=== PATIENT | male | born 1950 | race Caucasian/White ===

== ENCOUNTER → 2017-10-03 | Outpatient (CLI) | payer BC, OTHER ==
[~2017-10-03] MED LIST: ASPI-1471 PO; ATR80PT PO; BUPR-134 PO; BUPR300T55 PO; DIATOMACEOUS EARTH PO; IBU600 PO; METH18TA12 PO; PROP40TA45 PO; SERT-181 PO; SIMV-42 PO; VITA-324 PO
[2017-10-03 16:09] LABS: PLATELET COUNT, AUTOMATED 181 K/uL (150-450)
--- NOTE | 2017-10-03 16:41 | RADIOLOGY IMAGING REPORT ---
FACILITY: [facility] [place] PATIENT NAME: Gautam Robledo : 1950 MR: [id number] V: [id number] EXAM DATE: ORDERING PHYSICIAN: CARINA JULIEN TECHNOLOGIST: Location: [facility] Patient: Gautam Robledo : 1950 Visit/Account:[id number] Date of Sevice: 10/03/2017 Exam type: CHEST PA AND LAT History: Copy two days, shortness of breath, nonsmoker Comparison: None. Findings: There is linear stranding seen in the lung bases, left greater than right which may represent scarrin g versus atelectasis. There also appears be mild peribronchial thickening in the lower lobes. No ev idence of lobar consolidation pleural effusions or overt pulmonary edema. Cardiac swelling is normal in size. IMPRESSION: 1. Linear stranding the lung bases, left greater than right which may represent scarring versus atel ectasis Mild peribronchial thickening in the lower lobes which could represent an acute peribronchial inflamm atory process A phone message was left for CARINA JULIEN at 10/03/2017 4:37 PM. Report Dictated By: Hilary Baez MD at 10/03/2017 4:35 PM Report E-Signed By: Hilary Baez MD at 10/03/2017 4:37 PM WSN:[id number]
--- NOTE | 2017-10-03 17:28 | EKG ---
FACILITY: [facility] PATIENT NAME: DELFINO DAVIES : [id number] MR: [id number] V: [id number] EXAM DATE: ORDERING PHYSICIAN: INES JULIEN TECHNOLOGIST: JELLY Mullins Reason : SOB Blood Pressure : / mmHG Vent. Rate : 079 BPM Atrial Rate : 079 BPM P-R Int : 170 ms QRS Dur : 102 ms QT Int : 362 ms P-R-T Axes : 069 -26 052 degrees QTc Int : 415 ms Normal sinus rhythm Septal infarct , age undetermined Abnormal ECG No previous ECGs available Confirmed by LUANA PAYTON ([id number]) on 10/04/2017 1:01:32 PM Referred By: CARINA JULIEN Confirmed By:LUANA PAYTON
== END ==
LOC: RAD 15:49
PROVIDERS: ATTEND Nurse Practitioner Family
DX: R94.31 Abnormal electrocardiogram [ECG] [EKG] (principal); R91.8 Other nonspecific abnormal finding of lung field; R07.9 Chest pain, unspecified; R06.02 Shortness of breath
CPT/HCPCS: 36415; 71046; 82040; 82247; 82310; 82374; 82435; 82565; 82947; 84075; 84132; 84155; 84295; 84450; 84460; 84484; 84520; 85025; 85379; 93005

== ENCOUNTER → 2017-11-29 | Outpatient (CLI) | payer MEDICARE ==
--- NOTE | 2017-11-29 17:37 | RADIOLOGY IMAGING REPORT ---
FACILITY: [facility] PATIENT NAME: Gautam Robledo : 1950 MR: [id number] V: [id number] EXAM DATE: ORDERING PHYSICIAN: LUIS SORENSON TECHNOLOGIST: Location: [facility] [place] Patient: Gautam Robledo : 1950 Visit/Account:[id number] Date of Sevice: 11/29/2017 EXAMINATION: Single Isotope SPECT Imaging with Exercise and Gated SPECT Imaging DATE OF EXAMINATION: 11/29/2017 DATE OF INTERPRETATION: 11/29/2017 REQUESTING PHYSICIAN: LUIS SORENSON INDICATION: The patient is a 67-year-old male evaluated for abnormal ECG. PROCEDURE: After informed consent the patient received an intravenous injection of 11.9 mCi of Tc-9 9m sestamibi followed at the appropriate time interval by rest imaging. The patient then exercised a ccording to the standard Papi protocol for 11:09 minutes achieving 12 METS. Resting heart rate was 60 bpm with a peak heart rate of 133 bpm which is 86 % of maximal predicted heart rate for age. Blo od pressure at rest was 131 / 90; blood pressure during exercise was 200 / 105. There was no chest p ain during exercise. Exercise was discontinued because of fatigue. Baseline EKG demonstrates normal sinus rhythm, no ST or T-wave abnormalities. There were no EKG changes of ischemia at peak exercise . Approximately one minute and 30 seconds prior to the termination of exercise, the patient received an intravenous injection of 29.9 mCi of Tc-99m sestamibi followed by stress imaging. RAW DATA: Examination of the summed raw data revealed a good quality study. MYOCARDIAL PERFUSION: The tomographic images demonstrate small anteroseptal defect at rest which cor rects with stress and prone imaging suggesting artifact. Otherwise no evidence of significant ischemi a or infarct.. GATED IMAGES: The gated images demonstrate hyperdynamic wall motion, ejection fraction 84% IMPRESSION: 1. Good quality study 2. Normal myocardial perfusion scan. 3. Hyperdynamic LV systolic function; LVEF 84%. 4. Based on the results of this exam, the patient appears to be at low risk for future cardiovascular events. Report Dictated By: Luis Sorenson at 11/29/2017 5:30 PM Report E-Signed By: Luis Sorenson at 11/29/2017 5:33 PM WSN:[id number]
== END ==
LOC: RESP 01:54
PROVIDERS: ATTEND Internal Medicine
DX: R07.2 Precordial pain (principal); R94.31 Abnormal electrocardiogram [ECG] [EKG]
CPT/HCPCS: 78452; 93017; A9500

== ENCOUNTER → 2018-09-04 | Outpatient (REF) | payer MEDICARE | LOC: ZZSENDIN 12:00 | PROVIDERS: ATTEND Urology | DX: N41.0 Acute prostatitis (principal); N41.1 Chronic prostatitis | CPT/HCPCS: 88305; 88344 ==